=== PATIENT | male | born 1990 | race Caucasian/White ===

== ENCOUNTER 2018-03-17 20:51 | Emergency (ER) | payer MEDICAID, OTHER ==
[~2018-03-17] VITALS: Ht 168.9 cm; Wt 68.7 kg
[2018-03-17] MEDS ORDERED: LORazepam 1 MG tablet PO ONE (21:30)
[2018-03-17] MEDS ORDERED: ziprasidone 20mg capsule PO ONE (21:30)
[2018-03-17] MEDS ORDERED: LORazepam 0.5 MG tablet PO ONE (21:30)
--- NOTE | 2018-03-17 21:34 | NUR ---
PT'S FRIEND DROPPED OFF HIS BACKPACK. BACKPACK PLACED DIRECTLY IN BELONGINGS BAG AND PLACED IN LOCKER IN AMBULANCE.
[2018-03-17 21:51] LABS: BASOPHILS % (AUTO) 0.5 % (0-1); EOSINOPHILS # (AUTO) 0.1 X10'3 (0-0.9); EOSINOPHILS % (AUTO) 0.9 % (0-6); HEMATOCRIT 48.6 % (42.0-52.0); HEMOGLOBIN 16.4 g/dl (14.0-17.9); LYMPHOCYTES # (AUTO) 3.3 X10'3 (1.1-4.8); LYMPHOCYTES % (AUTO) 34.8 % (21-51); MEAN CORPUSCULAR HEMOGLOBIN 31.7 PG (27.0-31.0); MEAN CORPUSCULAR HGB CONC 33.7 % (33.0-36.5); MEAN PLATELET VOLUME 9.5 FL (7.4-10.4); MONOCYTES # (AUTO) 0.9 X10'3 (0-0.9); MONOCYTES % (AUTO) 9.4 % (2-12); NEUTROPHILS # (AUTO) 5.2 X10'3 (1.8-7.7); NEUTROPHILS % (AUTO) 54.4 % (42-75); PLATELET COUNT 228 X10'3 (140-440); RED BLOOD COUNT 5.17 X10'6 (4.70-6.10); WHITE BLOOD COUNT 9.6 X10'3 (4.5-11.0)
[2018-03-17 21:59] LABS: ALANINE AMINOTRANSFERASE 63 U/L (12-78); ALBUMIN 4.1 G/DL (3.4-5.0); ALBUMIN/GLOBULIN RATIO 1.3 (1.1-1.5); ALKALINE PHOSPHATASE 63 IU/L (46-116); ANION GAP 9 (8-16); ASPARTATE AMINO TRANSFERASE 68 U/L (10-37); BILIRUBIN,TOTAL 0.5 MG/DL (0.1-1.0); BLOOD UREA NITROGEN 12 MG/DL (7-18); BUN/CREATININE RATIO 11.1 (5.4-32.0); CALCIUM 8.6 MG/DL (8.5-10.1); CHLORIDE 103 MMOL/L (99-107); CREATININE 1.08 MG/DL (0.60-1.10); GLUCOSE 99 MG/DL (70-104); POTASSIUM 3.8 MMOL/L (3.5-5.1); SODIUM 142 MMOL/L (135-145); TOTAL CARBON DIOXIDE 29.6 MMOL/L (24-32); TOTAL PROTEIN 7.3 G/DL (6.4-8.2); eGFR 80 ML/MIN
[2018-03-17 22:09] LABS: ETHANOL 0.094 GM/DL (0.0-0.010)
--- NOTE | 2018-03-17 22:58 | NUR ---
Report rec'd from KANA Reyes. Patient observed per this RN priot to transfering to ER OF 23. Patient at that time in a manic state with fast and freq movement, pacing, and verbalizations. Racing thoughts and not able to focus. Patient placed into green scrubs and then escorted to new room per manager infrastructure
--- NOTE | 2018-03-17 23:14 | NUR ---
Unable to obtained home medication from patient, no medications listed in the external medication list.
--- NOTE | 2018-03-18 00:05 | NUR ---
Resting in bed with eyes closed, appearing to sleep.
--- NOTE | 2018-03-18 01:03 | NUR ---
Laying in bed, resting with eyes closed, appearing to sleep without new issues or concerns. Will continue to monitor.
--- NOTE | 2018-03-18 02:00 | NUR ---
Resting in bed, appearing to sleep comfortably without new issues or concerns, will continue to monitor.
--- NOTE | 2018-03-18 03:00 | NUR ---
Resting in bed, appearing to sleep comfortably without new issues or concerns, will continue to monitor.
--- NOTE | 2018-03-18 04:11 | NUR ---
Resting in bed, appearing to sleep, eyes closed, resp even and unlabored.
--- NOTE | 2018-03-18 05:15 | NUR ---
Resting in bed, self repositioning, though continues to appear to sleep without new concerns or issues noted. Will continue to monitor.
--- NOTE | 2018-03-18 07:13 | NUR ---
Telepsych called. Pt placed in queue.
[2018-03-18 07:22] LABS: CLARITY,URINE CLEAR (Clear); COLOR,URINE YELLOW (Yellow); GLUCOSE, URINE NEGATIVE (Neg); KETONES,URINE TRACE mg/dl (Neg); LEUKOCYTE ESTERASE ,URINE NEGATIVE (Neg); NITRITES, URINE NEGATIVE (Neg); OCCULT BLOOD,URINE NEGATIVE (Neg); PROTEIN,URINE NEGATIVE (Neg); UA COLLECTION TYPE CLN CATCH MIDSTREAM; UROBILINOGEN,URINE 0.2 E.U/dL (0.2-1.0)
[2018-03-18 07:35] LABS: URINE AMPHETAMINE SCREEN NEGATIVE (Neg); URINE BARBITUATE SCREEN NEGATIVE (Neg); URINE BENZODIAZEPINES SCREEN NEGATIVE (Neg); URINE CANNABINOID SCREEN POSITIVE (Neg); URINE COCAINE SCREEN NEGATIVE (Neg); URINE METHADONE SCREEN NEGATIVE (Neg); URINE OPIATE SCREEN NEGATIVE (Neg); URINE PHENCYCLIDINE SCREEN NEGATIVE (Neg)
--- NOTE | 2018-03-18 08:31 | NUR ---
Woke upt o talk with psychiatrist via SOC. Now back to sleep.
--- NOTE | 2018-03-18 11:30 | NUR ---
Pt very disorganized and grandiose in his speech. Continues to ask for cell phone to call his friends. Instructed on unit policies and procedures.
[2018-03-18] MEDS ORDERED: nicotine 21mg patch - 24 hr TD ONE (13:15)
--- NOTE | 2018-03-18 19:37 | NUR ---
on the phone talking to his mom and friend.
[2018-03-18] MEDS ORDERED: quetiapine 100mg tablet PO ONE (21:00)
[2018-03-18] MEDS: multivitamins, therapeutics tablet PO SCH (21:27)
--- NOTE | 2018-03-18 22:14 | NUR ---
Discussed pt's restlessness and inability to sleep with Dr Phillip; new order for Lissa received.
[2018-03-18] MEDS ORDERED: ziprasidone 20mg capsule PO SCH (23:10)
--- NOTE | 2018-03-18 23:12 | NUR ---
pt requesting xanax for anxiety. spoke with dr. hollis and will order geodon. please see new orders.
--- NOTE | 2018-03-19 02:20 | NUR ---
Pt resting quietly on left side. RR 14, even and unlabored. no apparent distress @ this time.
[2018-03-19] MEDS ORDERED: ziprasidone 20mg capsule PO PRN (03:05)
[2018-03-19] MEDS ORDERED: ziprasidone IM 20mg inj **IM only IM PRN (03:05)
--- NOTE | 2018-03-19 03:09 | NUR ---
SOC medication recommendation entered into eMar as it was missing, after EDMD reviewed
--- NOTE | 2018-03-19 05:00 | NUR ---
pt resting comfortably on right hip. no signs of distress noted. will continue to monitor.
--- NOTE | 2018-03-19 06:30 | NUR ---
Awake upon change of shift observation. Sitting up in bed with the light on. Asking for "a clipboard" to display his "[employer]." Also asking for a face mask "to know what the people of [employer] felt like." States "I need to get myself ready to go back to my people." Asked for "my Geodon. I need it now. I can feel it." Geodon 20 mg PO PRN administered.
[2018-03-19] MEDS ORDERED: nicotine 21mg patch - 24 hr TD ONE (08:00)
[2018-03-19] MEDS: multivitamins, therapeutics tablet PO SCH (08:13)
--- NOTE | 2018-03-19 08:30 | NUR ---
Remains awake. Served breakfast. Picked at his food. States "I'm very picky about what I eat. I just don't eat anything. Please take it away."
--- NOTE | 2018-03-19 10:30 | NUR ---
Received call from family friend Johnnie . States "I'm a friend of the family and we are looking to place Alireza into a drug rehab center, either in [facility] or [place]." Call transferred to the office of Kelsea Calvert from [facility] for further discussion.
--- NOTE | 2018-03-19 12:30 | NUR ---
Continues to remain awake. Served lunch. Ate 75% of his meal. In good spirits. Receiving multiple phone calls from male and female friends. In good spirits. Mentality has improved. Presents as less psychotic than the AM though grandiose in nature. 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 These are my heroes, Margarito Bradley, Sherwin Foreman Jr., Tre Reyes. I'm all about world peace."
--- NOTE | 2018-03-19 14:30 | NUR ---
Call received from [facility]. Patient has been accepted for admission. Patient accepted this information well. States "Great! I'll get to take a shower."
[2018-03-19] MEDS ORDERED: LORazepam 1 MG tablet PO PRN (14:35)
[2018-03-19] MEDS ORDERED: LORazepam 0.5 MG tablet PO PRN (14:36)
--- NOTE | 2018-03-19 15:00 | NUR ---
Discharge Note: Patient discharged from the ER via wheelchair with all his personal possessions. Brought to the [facility] for Admission, Room 331B.
[2018-03-19 15:24] VITALS: BP 122/80
[2018-03-19] MEDS ORDERED: NO HOME MEDS (16:22)
[2018-03-19] MEDS ORDERED: quetiapine 100mg tablet PO SCH (21:00)
== END 2018-03-19 15:00 ==
LOC: ER 20:53
DX: F29 Unspecified psychosis not due to a substance or known physiological condition (principal); F41.9 Anxiety disorder, unspecified; F32.9 Major depressive disorder, single episode, unspecified; F10.20 Alcohol dependence, uncomplicated; Y90.9 Presence of alcohol in blood, level not specified; J45.909 Unspecified asthma, uncomplicated; F12.90 Cannabis use, unspecified, uncomplicated; F14.90 Cocaine use, unspecified, uncomplicated
CPT/HCPCS: 36415; 80053; 80305; 80320; 81003; 84443; 85025; 96372; 99285; J3486

== ENCOUNTER 2018-03-19 13:30 | Inpatient (IN) | payer MEDICAID, OTHER | END 2018-03-29 17:35 | disposition still patient (30) | LOC: ADULT MH 13:30 | DX: F31.9 Bipolar disorder, unspecified (principal); F41.9 Anxiety disorder, unspecified ==